=== PATIENT | female | born 1950 | race Caucasian/White ===

== ENCOUNTER 2016-11-08 11:15 | Day surgery (SDC) | payer BC ==
[~2016-11-08] VITALS: Ht 172.7 cm; Wt 82.1 kg
[~2016-11-08 11:15] MED LIST: CITA20TA17 PO; LIDOCAINE 1% (10mg/ml) 2ml SDV INJ ONE; LR 1,000 ML IV SCH; MAGN400C PO
--- OUTSIDE RECORDS SUMMARY | 2016-11-08 11:19 | XMS REPORT | Referral Summary ---
Author Author [facility], Family Medicine Organization [facility] Address Unknown Phone Unavailable Care Team Providers Care Lead Database Administrator Name Role Phone Doris Albert Primary Care Physician [phone] Encounter [facility] [id number] Date(s): 10/03/15 - 10/03/15 [facility], [address] [place] [address]- Discharge Diagnosis: Fatigue Discharge Diagnosis: Left otitis externa Discharge Diagnosis: Lipid screening Discharge Diagnosis: Knee pain, right Discharge Diagnosis: Well woman exam (no gynecological exam) Discharge Disposition: 01-Home or Self Care Attending Physician: Ciara Moreno PA-C Admitting Physician: Ciara Moreno PA-C Vital Signs Most recent to 1 oldest [Reference Range]: Peripheral Pulse 76 bpm Rate [60-100 bpm] (10/03/15 8:41 AM) Respiratory Rate 18 br/min [14-20 br/min] (10/03/15 8:41 AM) Blood Pressure 106/68 mmHg [90-140/60-90 mmHg] (10/03/15 8:41 AM) Problem List Condition Effective Dates Status Health Status Informant Abdominal Active pain(Confirmed) Asthma(Confirmed)1 Active Chronic fatigue Active disorder(Confirmed) Anxious Active depression(Confirmed ) PUD (peptic ulcer Active disease)(Confirmed) 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, usually no problems Allergies, Adverse Reactions, Alerts Substance Reaction Severity Status penicillin Rash Active sulfanilamide topical Rash Active Medications Aspir 81 81 mg, Oral, Daily, 0 Refill(s) Start Date: 06/03/14 Status: Ordered CeleXA 20 mg oral tablet See Instructions, TAKE ONE TABLET BY MOUTH DAILY, # 60 tabs, 6 Refill(s), Pharmacy: [facility] #[id number], TAKE ONE TABLET BY MOUTH DAILY Start Date: 01/16/15 Status: Ordered Ciprodex 0.3%-0.1% otic suspension 4 drops, Ear-Left, BID, X 7 days, # 7.5 mL, 0 Refill(s), Pharmacy: [id number] Start Date: 09/29/15 Stop Date: 10/06/15 Status: Ordered clindamycin 300 mg oral capsule See Instructions, TAKE 2 CAPSULES BY MOUTH 1 HOUR PRIOR TO DENTAL WORK., # 2 caps, 1 Refill(s), eRx: [facility] #[id number], TAKE 2 CAPSULES BY MOUTH 1 HOUR PRIOR TO DENTAL WORK. Start Date: 05/25/15 Status: Ordered PriLOSEC 20 mg oral delayed release capsule 20 mg 1 caps, Oral, Daily, # 90 caps, 3 Refill(s), Pharmacy: [facility] # [id number], 1 caps Oral Daily Start Date: 01/16/15 Status: Ordered Results Hematology Most recent to 1 oldest [Reference Range]: WBC [4.8-10.8 4.3 10*3/uL 10*3/uL] *LOW* (10/03/15 9:10 AM) RBC [4.00-5.20] 4.62 (10/03/15 9:10 AM) Hgb [12.0-16.0 13.2 gm/dL gm/dL] (10/03/15 9:10 AM) Hct [37.0-47.0 %] 38.4 % (10/03/15 9:10 AM) MCV [82.0-99.0 fL] 83.1 fL (10/03/15 9:10 AM) MCH [27.0-32.0 pg] 28.6 pg (10/03/15 9:10 AM) MCHC [32.0-36.0 34.4 gm/dL gm/dL] (10/03/15 9:10 AM) RDW [11.5-14.5 %] 13.9 % (10/03/15 9:10 AM) Platelet [150-400 282 10*3/uL 10*3/uL] (10/03/15 9:10 AM) MPV [8.8-14.8 fL] 9.6 fL (10/03/15 9:10 AM) Immature 0.0 % Granulocytes (10/03/15 9:10 AM) [0.0-1.0 %] Neutrophils [51-75 48 % %] *LOW* (10/03/15 9:10 AM) Lymphocytes [20-46 37 % %] (10/03/15 9:10 AM) Monocytes [4-11 %] 11 % (10/03/15 9:10 AM) Eosinophils [0-4 %] 4 % (10/03/15 9:10 AM) Basophils [0-2 %] 1 % (10/03/15 9:10 AM) Neutro Absolute 2.04 10*3 [1.90-7.00 10*3] (10/03/15 9:10 AM) Lymph Absolute 1.58 10*3 [0.80-3.30 10*3] (10/03/15 9:10 AM) [place] Absolute 0.46 10*3 [0.30-1.00 10*3] (10/03/15 9:10 AM) Eos Absolute 0.16 10*3 [0.00-0.50 10*3] (10/03/15 9:10 AM) Baso Absolute 0.02 10*3 [0.00-0.20 10*3] (10/03/15 9:10 AM) Chemistry Most recent to 1 oldest [Reference Range]: Sodium Lvl [135-144 140 mEq/L mEq/L] (10/03/15 9:10 AM) Potassium Lvl 4.3 mEq/L [3.5-5.2 mEq/L] (10/03/15 9:10 AM) Chloride [99-111 107 mEq/L mEq/L] (10/03/15 9:10 AM) CO2 [22-31 mEq/L] 28 mEq/L (10/03/15 9:10 AM) AGAP [3-20] 5 (10/03/15 9:10 AM) BUN [10-20 mg/dL] 13 mg/dL (10/03/15 9:10 AM) Glucose Lvl [70-99 81 mg/dL mg/dL] (10/03/15 9:10 AM) Creatinine Lvl 0.75 mg/dL [0.57-1.11 mg/dL] (10/03/15 9:10 AM) eGFR [>60 mL/min] >60 mL/min 1 (10/03/15 9:10 AM) Calcium Lvl 9.1 mg/dL [8.9-10.5 mg/dL] (10/03/15 9:10 AM) Albumin Lvl [3.4-4.8 4.1 gm/dL gm/dL] (10/03/15 9:10 AM) Total Protein 6.3 gm/dL [6.2-8.1 gm/dL] (10/03/15 9:10 AM) Globulin [1.8-4.0 2.2 gm/dL gm/dL] (10/03/15 9:10 AM) ALT [0-55 U/L] 17 U/L (10/03/15 9:10 AM) AST [5-34 U/L] 14 U/L (10/03/15 9:10 AM) Alk Phos [40-150 52 U/L U/L] (10/03/15 9:10 AM) Bili Total [0.2-1.2 0.5 mg/dL mg/dL] (10/03/15 9:10 AM) Chol [0-199 mg/dL] 188 mg/dL (10/03/15 9:10 AM) Trig [0-149 mg/dL] 100 mg/dL (10/03/15 9:10 AM) HDL [40-84 mg/dL] 51 mg/dL (10/03/15 9:10 AM) LDL [0-130 mg/dL] 117 mg/dL (10/03/15 9:10 AM) VLDL Cholesterol 20 mg/dL [0-28 mg/dL] (10/03/15 9:10 AM) Cardiac Risk 3.7 [0.0-5.0] (10/03/15 9:10 AM) TSH with Reflex Free 2.21 T4 [0.35-4.94] (10/03/15 9:10 AM) 1Result Comment: Multiply eGFR results by 1.21 for race. Immunizations Vaccine Date Refusal Reason tetanus/diphth/pertuss (Tdap) adult/adol 08/14/10 influenza virus vaccine, inactivated 06/02/15 influenza virus vaccine, inactivated 06/21/14 influenza virus vaccine, inactivated 07/30/13 influenza virus vaccine, live 07/02/12 pneumococcal 13-valent conjugate vaccine 02/27/15 pneumococcal 23-polyvalent vaccine 02/09/09 zoster vaccine live 02/27/15 Procedures Procedure Date Related Diagnosis Body Site Collection of venous blood by venipuncture 10/03/15 Excision of nail partial phenol & alcohol 02/03/12 lateral borde Removal of lesion Lt foot Destruct benign 12/27/11 Cataract extraction RT 2004 MANOHAR BSO - Total abdominal hysterectomy and 1996 bilateral salpingo-oophorectomy Social History Social History Type Response Smoking Status Never smoker Assessment and Plan Extracted from: Title: Ambulatory Patient Education Author: Ciara Moreno PA-C Date : 10/03/15 Family Medicine Fatigue Fatigue is feeling tired all of the time, a lack of energy, or a lack of motivation. Occasional or mild fatigue is often a normal response to activity or life in general. However, long-lasting (chronic) or extreme fatigue may indicate an underlying medical condition. HOME CARE INSTRUCTIONS Watch your fatigue for any changes. The following actions may help to lessen any discomfort you are feeling: Talk to your health care provider about how much sleep you need each night. Try to get the required amount every night. Take medicines only as directed by your health care provider. Eat a healthy and nutritious diet. Ask your health care provider if you need help changing your diet. Drink enough fluid to keep your urine clear or pale yellow. Practice ways of relaxing, such as yoga, meditation, massage therapy, or acupuncture. Exercise regularly. Change situations that cause you stress. Try to keep your work and personal routine reasonable. Do not abuse illegal drugs. Limit alcohol intake to no more than 1 drink per day for non women and 2 drinks per day for men. One drink equals 12 ounces of beer, 5 ounces of wine, or 1 ounces of hard liquor. Take a multivitamin, if directed by your health care provider. SEEK MEDICAL CARE IF: Your fatigue does not get better. You have a fever. You have unintentional weight loss or gain. You have headaches. You have difficulty: Falling asleep. Sleeping throughout the night. You feel angry, guilty, anxious, or sad. You are unable to have a bowel movement (constipation). You skin is dry. Your legs or another part of your body is swollen. SEEK IMMEDIATE MEDICAL CARE IF: You feel confused. Your vision is blurry. You feel faint or pass out. You have a severe headache. You have severe abdominal, pelvic, or back pain. You have chest pain, shortness of breath, or an irregular or fast heartbeat. You are unable to urinate or you urinate less than normal. You develop abnormal bleeding, such as bleeding from the rectum, vagina, nose, lungs, or nipples. You vomit blood. You have thoughts about harming yourself or committing suicide. You are worried that you might harm someone else. This information is not intended to replace advice given to you by your health care provider. Make sure you discuss any questions you have with your health care provider. Document Released: 05/17/2008 Document Revised: 05/09/2015 Document Reviewed: [facility] Patient Information 2015 [employer]. Knee Pain Knee pain is a very common symptom and can have many causes. Knee pain often goes away when you follow your health care provider's instructions for relieving pain and discomfort at home. However, knee pain can develop into a condition that needs treatment. Some conditions may include: Arthritis caused by wear and tear (osteoarthritis). Arthritis caused by swelling and irritation (rheumatoid arthritis or gout ). A cyst or growth in your knee. An infection in your knee joint. An injury that will not heal. Damage, swelling, or irritation of the tissues that support your knee ( torn ligaments or tendinitis). If your knee pain continues, additional tests may be ordered to diagnose your condition. Tests may include X-rays or other imaging studies of your knee. You may also need to have fluid removed from your knee. Treatment for ongoing knee pain depends on the cause, but treatment may include: Medicines to relieve pain or swelling. Steroid injections in your knee. Physical therapy. Surgery. HOME CARE INSTRUCTIONS Take medicines only as directed by your health care provider. Rest your knee and keep it raised (elevated) while you are resting. Do not do things that cause or worsen pain. Avoid high-impact activities or exercises, such as running, jumping rope , or doing jumping jacks. Apply ice to the knee area: Put ice in a plastic bag. Place a towel between your skin and the bag. Leave the ice on for 20 minutes, 23 times a day. Ask your health care provider if you should wear an elastic knee support. Keep a pillow under your knee when you sleep. Lose weight if you are overweight. Extra weight can put pressure on your knee. Do not use any tobacco products, including cigarettes, chewing tobacco, or electronic cigarettes. If you need help quitting, ask your health care provider. Smoking may slow the healing of any bone and joint problems that you may have. SEEK MEDICAL CARE IF: Your knee pain continues, changes, or gets worse. You have a fever along with knee pain. Your knee javier or locks up. Your knee becomes more swollen. SEEK IMMEDIATE MEDICAL CARE IF: Your knee joint feels hot to the touch. You have chest pain or trouble breathing. This information is not intended to replace advice given to you by your health care provider. Make sure you discuss any questions you have with your health care provider. Document Released: 05/17/2008 Document Revised: 05/09/2015 Document Reviewed: [facility] Patient Information 2015 [employer]. No follow up information was provided. Extracted from: Title: Office Visit Note- WWE Author: Ciara Moreno PA-C Date: Assessment/Plan Fatigue Will check some lab work today. Ordered: CBC w/ Differential Comprehensive Metabolic Panel Office Visit Level 4 Est 52068 TSH with Reflex Free T4 Knee pain, right I advised an x-ray today given the trauma to the R knee. Pt is advised to continue with ice, rest, and Tylenol for pain. Alsorecommended wrapping the knee with sleeve or GILA bandage. Ordered: Office Visit Level 4 Est 87574 XR Knee Complete Right Left otitis externa This appears to be resolving. Continue with drops for full course. Ordered: Office Visit Level 4 Est 41825 Lipid screening Will check fasting lipids today. Ordered: Lipid Panel Well woman exam (no gynecological exam) Pt does not need pap as she hashad hysterectomy. Still requires WWE yearly for manual breast exam. She is to call and schedule mammo. Sheis also encouraged to get colonoscopy. Ordered: CBC w/ Differential Comprehensive Metabolic Panel Lipid Panel Office Visit Level 4 Est 36201 TSH with Reflex Free T4
--- OUTSIDE RECORDS SUMMARY | 2016-11-08 11:19 | XMS REPORT | Referral Summary ---
Author Author [facility], Family [facility] Organization [facility] Address Unknown Phone Unavailable Care Team Providers Care Numerical Control Operator Name Role Phone Doris Albert Primary Care Physician [phone] Encounter [facility] [id number] Date(s): 02/27/15 - 02/27/15 [facility], [address] [place] [address]- Discharge Diagnosis: Need for zoster vaccine Discharge Diagnosis: Need for pneumococcal vaccination Discharge Disposition: 01-Home or Self Care Attending Physician: Sixto Albert MD Admitting Physician: Sixto Albert MD Vital Signs No data available for this section Problem List Condition Effective Dates Status Health [...] DAILY, # 60 tabs, 6 Refill(s), Pharmacy: [facility] #[id number], TAKE ONE TABLET BY MOUTH DAILY Start Date: 01/16/15 Status: Ordered clindamycin 300 mg oral capsule See Instructions, TAKE 2 CAPSULES BY MOUTH 1 HOUR PRIOR TO DENTAL WORK., # 2 caps, 1 Refill(s), [id number], TAKE 2 CAPSULES BY MOUTH 1 HOUR PRIOR TO DENTAL WORK. Start Date: 05/25/15 Status: Ordered PriLOSEC 20 mg oral delayed release capsule 20 mg 1 caps, Oral, Daily, # 90 caps, 3 Refill(s), Pharmacy: [facility] # [id number], 1 caps Oral Daily Start Date: 01/16/15 Status: Ordered Results No data available for this section Immunizations Vaccine Date Refusal Reason tetanus/diphth/pertuss (Tdap) adult/adol 08/14/10 influenza virus vaccine, inactivated 06/02/15 influenza virus vaccine, inactivated 06/21/14 influenza virus vaccine, inactivated 07/30/13 influenza virus vaccine, live 07/02/12 pneumococcal 13-valent conjugate vaccine 02/27/15 pneumococcal 23-polyvalent vaccine 02/09/09 zoster vaccine live 02/27/15 Procedures Procedure Date Related Diagnosis Body Site Excision of nail partial phenol & alcohol 02/03/12 lateral borde Removal of lesion Lt foot Destruct benign 12/27/11 Cataract extraction RT 2004 MANOHAR BSO - Total abdominal hysterectomy and 1996 bilateral salpingo-oophorectomy Social History Social History Type Response Smoking Status Never smoker Assessment and Plan No data available for this section
--- OUTSIDE RECORDS SUMMARY | 2016-11-08 11:19 | XMS REPORT | Referral Summary ---
Author Author [facility] Family [facility] Organization [facility] Address Unknown Phone Unavailable Care Team Providers Care Litigation Paralegal Name Role Phone Doris Albert Primary Care Physician [phone] Encounter [facility] Date(s): 07/10/16 - 07/10/16 [facility], [address] [place] [address]- Discharge Disposition: 01-Home or Self Care Attending Physician: Sixto Albert MD Vital Signs Most recent to 1 oldest [Reference Range]: Blood Pressure 116/64 mmHg [90-140/60-90 mmHg] (07/10/16 1:29 PM) Problem List Condition Effective Dates Status Health Status Informant Abdominal Active pain(Confirmed) Asthma(Confirmed)1 Active Chronic fatigue Active disorder(Confirmed) Closed fracture of Active body of sternum(Confirmed) Disorder of skeletal Active muscle(Confirmed) Anxious Active depression(Confirmed ) Cervical pain Active (neck)(Confirmed) PUD (peptic ulcer Active disease)(Confirmed) 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, usually no problems Allergies, Adverse Reactions, Alerts Substance Reaction Severity Status penicillin Rash Active sulfanilamide topical Rash Active Medications Aspir 81 81 mg, Oral, Daily, 0 Refill(s) Start Date: 06/03/14 Status: Ordered CeleXA 20 mg oral tablet See Instructions, TAKE ONE TABLET BY MOUTH DAILY, # 60 tabs, 6 Refill(s), Pharmacy: [id number], TAKE ONE TABLET BY MOUTH DAILY Start Date: 02/15/16 Status: Ordered clindamycin 300 mg oral capsule See Instructions, TAKE 2 CAPSULES BY MOUTH 1 HOUR PRIOR TO DENTAL WORK., # 2 caps, 1 Refill(s), eRx: [facility] #[id number], TAKE 2 CAPSULES BY MOUTH 1 HOUR PRIOR TO DENTAL WORK. Start Date: 05/25/15 Status: Ordered Mobic 7.5 mg oral tablet 7.5 mg 1 tabs, Oral, BID, # 60 tabs, 2 Refill(s), Pharmacy: [id number], 1 tabs Oral BID Start Date: 05/29/16 Status: Ordered Probiotic Formula caps, Oral, Daily, 0 Refill(s) Start Date: 02/15/16 Status: Ordered Robaxin-750 oral tablet 750 mg 1 tabs, Oral, TID, # 90 tabs, 1 Refill(s), Pharmacy: [id number], 1 tabs Oral TID Start Date: 05/29/16 Status: Ordered Voltaren 1% topical gel 1 chang, Topical, QID, # 100 g, 0 Refill(s), Pharmacy: [id number] Start Date: 07/10/16 Status: Ordered Results No data available for this section Immunizations Vaccine Date Refusal Reason tetanus/diphth/pertuss (Tdap) adult/adol 08/14/10 influenza virus vaccine, inactivated1 06/21/16 influenza virus vaccine, inactivated 06/02/15 influenza virus vaccine, inactivated 06/21/14 influenza virus vaccine, inactivated 07/30/13 influenza virus vaccine, live 07/02/12 pneumococcal 13-valent conjugate vaccine 02/27/15 pneumococcal 23-polyvalent vaccine 04/17/16 pneumococcal 23-polyvalent vaccine 02/09/09 zoster vaccine live 02/27/15 1Location History: [facility]. Procedures Procedure Date Related Diagnosis Body Site Excision of nail partial phenol & alcohol 02/03/12 lateral borde Removal of lesion Lt foot Destruct benign 12/27/11 Cataract extraction RT 2004 MANOHAR BSO - Total abdominal hysterectomy and 1996 bilateral salpingo-oophorectomy Social History Social History Type Response Smoking Status Never smoker Assessment and Plan Extracted from: Title: Ambulatory Patient Education Author: Sixto Albert MD Date: 07/10/16 Family Medicine Joint Pain Joint pain, which is also called arthralgia, can be caused by many things. Joint pain often goes away when you follow your health care provider's instructions for relieving pain at home. However, joint pain can also be caused by conditions that require further treatment. Common causes of joint pain include: Bruising in the area of the joint. Overuse of the joint. Wear and tear on the joints that occur with aging (osteoarthritis). Various other forms of arthritis. A buildup of a crystal form of uric acid in the joint (gout). Infections of the joint (septic arthritis) or of the bone (osteomyelitis) . Your health care provider may recommend medicine to help with the pain. If your joint pain continues, additional tests may be needed to diagnose your condition. HOME CARE INSTRUCTIONS Watch your condition for any changes. Follow these instructions as directed to lessen the pain that you are feeling. Take medicines only as directed by your health care provider. Rest the affected area for as long as your health care provider says that you should. If directed to do so, raise the painful joint above the level of your heart while you are sitting or lying down. Do not do things that cause or worsen pain. If directed, apply ice to the painful area: Put ice in a plastic bag. Place a towel between your skin and the bag. Leave the ice on for 20 minutes, 23 times per day. Wear an elastic bandage, splint, or sling as directed by your health care provider. Loosen the elastic bandage or splint if your fingers or toes become numb and tingle, or if they turn cold and blue. Begin exercising or stretching the affected area as directed by your health care provider. Ask your health care provider what types of exercise are safe for you. Keep all follow-up visits as directed by your health care provider. This is important. SEEK MEDICAL CARE IF: Your pain increases, and medicine does not help. Your joint pain does not improve within 3 days. You have increased bruising or swelling. You have a fever. You lose 10 lb (4.5 kg) or more without trying. SEEK IMMEDIATE MEDICAL CARE IF: You are not able to move the joint. Your fingers or toes become numb or they turn cold and blue. This information is not intended to replace advice given to you by your health care provider. Make sure you discuss any questions you have with your health care provider. Document Released: 07/21/2006 Document Revised: 08/11/2015 Document Reviewed: [employer] Patient Education 2016 [employer] No follow up information was provided. Extracted from: Title: Office Visit Note Author: Sixto Albert MD Date: 07/10/16 Assessment/Plan Acute knee pain Will get an x-ray and refer patient to see Dr. Chris. Koko dee. Ordered: Office Visit Level 3 Est 81643
--- OUTSIDE RECORDS SUMMARY | 2016-11-08 11:19 | XMS REPORT | Referral Summary ---
Author Author [facility], Family Medicine Organization [facility] Address Unknown Phone Unavailable Care Team Providers Care Deoiling Machine Operator Name Role Phone Doris Albert Primary Care Physician [phone] Encounter VC Date(s): 03/27/16 - 03/27/16 [facility], [address] [place] [address]- Discharge Disposition: 01-Home or Self Care Attending Physician: Sixto Albert MD Admitting Physician: Sixto Albert MD Vital Signs Most recent to 1 oldest [Reference Range]: Blood Pressure 96/58 mmHg [90-140/60-90 mmHg] (03/27/16 9:30 AM) Problem List Condition Effective Dates Status Health Status Informant Abdominal Active pain(Confirmed) Asthma(Confirmed)1 Active Chronic fatigue Active disorder(Confirmed) Closed fracture of Active body of sternum(Confirmed) Anxious Active depression(Confirmed ) PUD (peptic ulcer Active disease)(Confirmed) Chronic Active insomnia(Confirmed) 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, usually no problems Allergies, Adverse Reactions, Alerts Substance Reaction Severity Status penicillin Rash Active sulfanilamide topical Rash Active Medications Aspir 81 81 mg, Oral, Daily, 0 Refill(s) Start Date: 06/03/14 Status: Ordered CeleXA 20 mg oral tablet See Instructions, TAKE ONE TABLET BY MOUTH DAILY, # 60 tabs, 6 Refill(s), Pharmacy: [id number], TAKE ONE TABLET BY MOUTH DAILY Start Date: 02/15/16 Status: Ordered clindamycin 300 mg oral capsule See Instructions, TAKE 2 CAPSULES BY MOUTH 1 HOUR PRIOR TO DENTAL WORK., # 2 caps, 1 Refill(s), eRx: [facility] #[id number], TAKE 2 CAPSULES BY MOUTH 1 HOUR PRIOR TO DENTAL WORK. 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 A piece of the herniated disk may press against the nerves as the nerves exit the spine. This causes pain which is felt at the tips of the nerves down the arm or leg. Other causes of radicular pain may include: Fractures. Heart disease. Cancer. An abnormal and usually degenerative state of the nervous system or nerves (neuropathy). Diagnosis may require CT or MRI scanning to determine the primary cause. Nerves that start at the neck (nerve roots) may cause radicular pain in the outer shoulder and arm. It can spread down to the thumb and fingers. The symptoms vary depending on which nerve root has been affected. In most cases radicular pain improves with conservative treatment. Neck problems may require physical therapy, a neck collar, or cervical traction. Treatment may take many weeks, and surgery may be considered if the symptoms do not improve. Conservative treatment is also recommended for sciatica. Sciatica causes pain to radiate from the lower back or buttock area down the leg into the foot. Often there is a history of back problems. Most patients with sciatica are better after 2 to 4 weeks of rest and other supportive care. Short term bed rest can reduce the disk pressure considerably. Sitting, however, is not a good position since this increases the pressure on the disk. You should avoid bending , lifting, and all other activities which make the problem worse. Traction can be used in severe cases. Surgery is usually reserved for patients who do not improve within the first months of treatment. Only take bcrm-eag-gwbntga or prescription medicines for pain, discomfort, or fever as directed by your caregiver. Narcotics and muscle relaxants may help by relieving more severe pain and spasm and by providing mild sedation. Cold or massage can give significant relief. Spinal manipulation is not recommended. It can increase the degree of disc protrusion. Epidural steroid injections are often effective treatment for radicular pain. These injections deliver medicine to the spinal nerve in the space between the protective covering of the spinal cord and back bones (vertebrae). Your caregiver can give you more information about steroid injections. These injections are most effective when given within two weeks of the onset of pain. You should see your caregiver for follow up care as recommended. A program for neck and back injury rehabilitation with stretching and strengthening exercises is an important part of management. SEEK IMMEDIATE MEDICAL CARE IF: You develop increased pain, weakness, or numbness in your arm or leg. You develop difficulty with bladder or bowel control. You develop abdominal pain. This information is not intended to replace advice given to you by your health care provider. Make sure you discuss any questions you have with your health care provider. Document Released: 08/28/2005 Document Revised: 08/11/2015 Document Reviewed: [facility] Patient Information 2016 [facility], [facility]. Sternal Fracture The sternum is the bone in the center of the front of your chest which your ribs attach to. It is also called the breastbone. The most common cause of a sternal fracture (break in the bone) is an injury. The most common injury is from a motor vehicle accident. The fracture often comes from the seat belt or hitting the chest on the steering wheel or being forcibly bent forward ( shoulders toward your knees) during an accident. It is more common in females and the elderly. The fracture of the sternum is usually not a problem if there are no other injuries. Other injuries that may happen are to the ribs, heart, lungs, and abdominal organs. SYMPTOMS Common complaints from a fracture of the sternum include: Shortness of breath. Pain with breathing or difficulty breathing. Bruises about the chest. Tenderness or a cracking sound at the breastbone. DIAGNOSIS Your caregiver may be able to tell if the sternum is broken by examining you. Other times studies such as X-ray, CAT scan, ultrasound, and nuclear medicine are used to detect a fracture. TREATMENT Sternal fractures usually are not serious and if displacement is minimal , no treatment is necessary. The main concern is with damage to the surrounding structures: ribs, heart, great vessels coming from the heart, and the backbone in the chest area. Multiple rib fractures may cause breathing difficulties. Injury to one of the large vessels in the chest may be a threat to life and require immediate surgery. If injury to the heart or lungs is suspected it may be necessary to stay in the hospital and be monitored. Other injuries will be treated as needed. If the pieces of the breastbone are out of normal position, they may need to be reduced (put back in position) and then wired in place or fixed with a plate and screws during an operation. HOME CARE INSTRUCTIONS Avoid strenuous activity. Be careful during activities and avoid bumping or reinjuring the injured sternum. Activities that cause pain pull on the fracture site(s) and are best avoided if possible. Eat a normal, well-balanced diet. Drink plenty of fluids to avoid constipation, a common side effect of pain medications. Take deep breaths and cough several times a day, splinting the injured area with a pillow. This will help prevent pneumonia. Do not wear a rib belt or binder for the chest unless instructed otherwise. These restrict breathing and can lead to pneumonia. Only take xmfn-egj-wfdarae or prescription medicines for pain, discomfort , or fever as directed by your caregiver. SEEK MEDICAL CARE IF: You develop a continual cough, associated with thick or bloody mucus or phlegm ( sputum). SEEK IMMEDIATE MEDICAL CARE IF: You have a fever. You have increasing difficulty breathing. You feel sick to your stomach (nausea), vomit, or have abdominal pain. You have worsening pain, not controlled with medications. You develop pain in the tops of your shoulders (in the shoulder strap area). You feel light-headed or faint. You develop chest pain or an abnormal heartbeat (palpitations). You develop pain radiating into the jaw, teeth or down the arms. This information is not intended to replace advice given to you by your health care provider. Make sure you discuss any questions you have with your health care provider. Document Released: 03/04/2005 Document Revised: 08/11/2015 Document Reviewed: [facility] Patient Information 2016 [employer] [facility]. No follow up information was provided. Extracted from: Title: Office Visit Note Author: Sixto Albert MD Date: 03/27/16 Assessment/Plan Cervical spine degeneration Continue with the PT and also to work on the TMJ and if no improvement would suggest getting a Neuro consult and a MRI of the neck. Ordered: Office Visit Level 4 Est 59885 Closed fracture of body of sternum Improving will continue to follow. 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
--- OUTSIDE RECORDS SUMMARY | 2016-11-08 11:19 | XMS REPORT | Referral Summary ---
Author Author [facility], Family Medicine Organization [facility] Address Unknown Phone Unavailable Care Team Providers Care Director Emergency Services Name Role Phone Doris Albert Primary Care Physician [phone] Encounter VC Date(s): 04/17/16 - 04/17/16 [facility], [address] [place] [address]- Discharge Disposition: 01-Home or Self Care Attending Physician: Sixto Albert MD Admitting Physician: Sixto Albert MD Vital Signs Most recent to 1 oldest [Reference Range]: Blood Pressure 100/64 mmHg [90-140/60-90 mmHg] (04/17/16 9:15 AM) Problem List Condition Effective Dates Status [...] DAILY, # 60 tabs, 6 Refill(s), Pharmacy: [id number], TAKE ONE TABLET BY MOUTH DAILY Start Date: 02/15/16 Status: Ordered clindamycin 300 mg oral capsule See Instructions, TAKE 2 CAPSULES BY MOUTH 1 HOUR PRIOR TO DENTAL WORK., # 2 caps, 1 Refill(s), eRx: [facility] #[id number], TAKE 2 CAPSULES BY MOUTH 1 HOUR PRIOR TO DENTAL WORK. Start Date: 05/25/15 Status: Ordered Probiotic Formula caps, Oral, Daily, 0 Refill(s) Start Date: 02/15/16 Status: Ordered Results No data available for [...]
--- OUTSIDE RECORDS SUMMARY | 2016-11-08 11:19 | XMS REPORT | Referral Summary ---
Author Author [facility], Family Medicine Organization [facility] Address Unknown Phone Unavailable Care Team Providers Care Insulation Installer Name Role Phone Doris Albert Primary Care Physician [phone] Encounter [facility] [id number] Date(s): 09/29/15 - 09/29/15 [facility], [address] [place] [address]- Discharge Diagnosis: Left otitis externa Discharge Disposition: 01-Home or Self Care Attending Physician: Ciara Moreno PA-C Admitting Physician: Ciara Moreno PA-C Vital Signs Most recent to 1 oldest [Reference Range]: Peripheral Pulse 80 bpm Rate [60-100 bpm] (09/29/15 3:15 PM) Respiratory Rate 16 br/min [14-20 br/min] (09/29/15 3:15 PM) Blood Pressure 98/62 mmHg [90-140/60-90 mmHg] (09/29/15 3:15 PM) Problem List Condition Effective Dates Status [...] DAILY, # 60 tabs, 6 Refill(s), Pharmacy: [facility] #[id number], TAKE ONE TABLET BY MOUTH DAILY Start Date: 01/16/15 Status: Ordered Ciprodex 0.3%-0.1% otic suspension 4 drops, Ear-Left, BID, X 7 days, # 7.5 mL, 0 Refill(s), Pharmacy: [id number] Start Date: 09/29/15 Stop Date: 10/06/15 Status: Ordered clindamycin 300 mg oral capsule See Instructions, TAKE 2 CAPSULES BY MOUTH 1 HOUR PRIOR TO DENTAL WORK., # 2 caps, 1 Refill(s), [facility] #[id number], TAKE 2 CAPSULES BY MOUTH 1 HOUR PRIOR TO DENTAL WORK. Start Date: 05/25/15 Status: Ordered PriLOSEC 20 mg oral delayed release capsule 20 mg 1 caps, Oral, Daily, # 90 caps, 3 Refill(s), [facility] # [id number], 1 caps Oral Daily Start Date: 01/16/15 [...] Education Author: Ciara Moreno PA-C Date : 09/29/15 Family Medicine Ear Drops You have been diagnosed with a condition requiring you to put drops of medicine into your outer ear. HOME CARE INSTRUCTIONS Put drops in the affected ear as instructed. After putting the drops in, you will need to lie down with the affected ear facing up for ten minutes so the drops will remain in the ear canal and run down and fill the canal. Continue using the ear drops for as long as directed by your health care provider. Prior to getting up, put a cotton ball gently in your ear canal. Leave enough of the cotton ball out so it can be easily removed. Do not attempt to push this down into the canal with a cotton-tipped swab or other instrument. Do not irrigate or wash out your ears if you have had a perforated eardrum or mastoid surgery, or unless instructed to do so by your health care provider. Keep appointments with your health care provider as instructed. Finish all medicine, or use for the length of time prescribed by your health care provider. Continue the drops even if your problem seems to be doing well after a couple days, or continue as instructed. SEEK MEDICAL CARE IF: You become worse or develop increasing pain. You notice any unusual drainage from your ear (particularly if the drainage has a bad smell). You develop hearing difficulties. You experience a serious form of dizziness in which you feel as if the room is spinning, and you feel nauseated (vertigo). The outside of your ear becomes red or swollen or both. This may be a sign of an allergic reaction. MAKE SURE YOU: Understand these instructions. Will watch your condition. Will get help right away if you are not doing well or get worse. This information is not intended to replace advice given to you by your health care provider. Make sure you discuss any questions you have with your health care provider. Document Released: 07/15/2002 Document Revised: 07/26/2014 Document Reviewed: [facility] Patient Information 2015 [employer]. Otitis Externa Otitis externa is a bacterial or fungal infection of the outer ear canal. This is the area from the eardrum to the outside of the ear. Otitis externa is sometimes called "swimmer's ear." CAUSES Possible causes of infection include: Swimming in dirty water. Moisture remaining in the ear after swimming or bathing. Mild injury (trauma) to the ear. Objects stuck in the ear (foreign body). Cuts or scrapes (abrasions) on the outside of the ear. SIGNS AND SYMPTOMS The first symptom of infection is often itching in the ear canal. Later signs and symptoms may include swelling and redness of the ear canal, ear pain, and yellowish-white fluid (pus) coming from the ear. The ear pain may be worse when pulling on the earlobe. DIAGNOSIS Your health care provider will perform a physical exam. A sample of fluid may be taken from the ear and examined for bacteria or fungi. TREATMENT Antibiotic ear drops are often given for 10 to 14 days. Treatment may also include pain medicine or corticosteroids to reduce itching and swelling. HOME CARE INSTRUCTIONS Apply antibiotic ear drops to the ear canal as prescribed by your health care provider. Take medicines only as directed by your health care provider. If you have diabetes, follow any additional treatment instructions from your health care provider. Keep all follow-up visits as directed by your health care provider. PREVENTION Keep your ear dry. Use the corner of a towel to absorb water out of the ear canal after swimming or bathing. Avoid scratching or putting objects inside your ear. This can damage the ear canal or remove the protective wax that lines the canal. This makes it easier for bacteria and fungi to grow. Avoid swimming in lakes, polluted water, or poorly chlorinated pools. You may use ear drops made of rubbing alcohol and vinegar after swimming. Combine equal parts of white vinegar and alcohol in a bottle. Put 3 or 4 drops into each ear after swimming. SEEK MEDICAL CARE IF: You have a fever. Your ear is still red, swollen, painful, or draining pus after 3 days. Your redness, swelling, or pain gets worse. You have a severe headache. You have redness, swelling, pain, or tenderness in the area behind your ear. MAKE SURE YOU: Understand these instructions. Will watch your condition. Will get help right away if you are not doing well or get worse. This information is not intended to replace advice given to you by your health care provider. Make sure you discuss any questions you have with your health care provider. Document Released: 07/21/2006 Document Revised: 12/05/2014 Document Reviewed: [employer] Patient Information 2015 [facility]. No follow up information was provided. Extracted from: Title: Office Visit Note- L OE Author: Ciara Moreno PA-C Date: Assessment/Plan Left otitis externa At this time, the ear doesn't look too bad, but the pt would like treatment prior to the weekend. Will try some Ciprodex drops for a week, and she may take Tylenol for pain. She is to RTC on Friday if the pain is not improving. Ordered: Office Visit Level 3 Est 66875 Orders: ciprofloxacin-dexamethasone otic, 4 drops, Ear-Left, BID, X 7 days, # 7.5 mL, 0 Refill(s), [id number]
--- OUTSIDE RECORDS SUMMARY | 2016-11-08 11:19 | XMS REPORT | Referral Summary ---
Author Author [facility], [facility] Organization [facility] Address Unknown Phone Unavailable Care Team Providers Care Operator Electronic Warfare Name Role Phone Doris Albert Primary Care Physician [phone] Encounter VC Date(s): 05/29/16 - 05/29/16 [facility], [address] [place] [address]- Discharge Diagnosis: Closed fracture of body of sternum Discharge Diagnosis: Cervical pain (neck) Discharge Diagnosis: Disorder of skeletal muscle Discharge Disposition: 01-Home or Self Care Attending Physician: Sixto Albert MD Admitting Physician: Sixto Albert MD Vital Signs Most recent to 1 oldest [Reference Range]: Temperature Tympanic 37.6 degC [36.6-38.1 degC] (05/29/16 4:22 PM) Peripheral Pulse 81 bpm Rate [60-100 bpm] (05/29/16 4:22 PM) Blood Pressure 108/72 mmHg [90-140/60-90 mmHg] (05/29/16 4:22 PM) SpO2 97 % (05/29/16 4:22 PM) Problem List Condition Effective Dates Status [...] DAILY, # 60 tabs, 6 Refill(s), Pharmacy: [id number], TAKE ONE TABLET BY MOUTH DAILY Start Date: 02/15/16 Status: Ordered clindamycin 300 mg oral capsule See Instructions, TAKE 2 CAPSULES BY MOUTH 1 HOUR PRIOR TO DENTAL WORK., # 2 caps, 1 Refill(s), eRx: [facility] #[id number], TAKE 2 CAPSULES BY MOUTH 1 HOUR PRIOR TO DENTAL WORK. Start Date: 05/25/15 Status: Ordered Mobic 7.5 mg oral tablet 7.5 mg 1 tabs, Oral, BID, # 60 tabs, 2 Refill(s), [id number], 1 tabs Oral BID Start Date: 05/29/16 Status: Ordered Probiotic Formula caps, Oral, Daily, 0 Refill(s) Start Date: 02/15/16 Status: Ordered Robaxin-750 oral tablet 750 mg 1 tabs, Oral, TID, # 90 tabs, 1 Refill(s), Pharmacy: [id number], 1 tabs Oral TID Start Date: 05/29/16 Status: Ordered Results No data available for [...] Patient Education Author: Sixto Albert MD Date: Musculoskeletal Radicular Pain Radicular pain in either the [...] the first months of treatment. Only take isva-amh-uworazm or prescription medicines for pain, discomfort, or [...] Released: 08/28/2005 Document Revised: 08/11/2015 Document Reviewed: [employer] Patient Education 2016 [employer] Procedures Epidural Steroid Injection An epidural steroid injection is given to relieve pain in your neck, back, or legs that is caused by the irritation or swelling of a nerve root. This procedure involves injecting a steroid and numbing medicine (anesthetic) into the epidural space. The epidural space is the space between the outer covering of your spinal cord and the bones that form your backbone (vertebra). LET YOUR HEALTH CARE PROVIDER KNOW ABOUT: Any allergies you have. All medicines you are taking, including vitamins, herbs, eye drops, creams, and wsbh-jqy-hbcbnny medicines such as aspirin. Previous problems you or members of your family have had with the use of anesthetics. Any blood disorders or blood clotting disorders you have. Previous surgeries you have had. Medical conditions you have. RISKS AND COMPLICATIONS Generally, this is a safe procedure. However, as with any procedure, complications can occur. Possible complications of epidural steroid injection include: Headache. Bleeding. Infection. Allergic reaction to the medicines. Damage to your nerves. The response to this procedure depends on the underlying cause of the pain and its duration. People who have long-term (chronic) pain are less likely to benefit from epidural steroids than are those people whose pain comes on strong and suddenly. BEFORE THE PROCEDURE Ask your health care provider about changing or stopping your regular medicines. You may be advised to stop taking blood-thinning medicines a few days before the procedure. You may be given medicines to reduce anxiety. Arrange for someone to take you home after the procedure. PROCEDURE You will remain awake during the procedure. You may receive medicine to make you relaxed. You will be asked to lie on your stomach. The injection site will be cleaned. The injection site will be numbed with a medicine (local anesthetic). A needle will be injected through your skin into the epidural space. Your health care provider will use an X-ray machine to ensure that the steroid is delivered closest to the affected nerve. You may have minimal discomfort at this time. Once the needle is in the right position, the local anesthetic and the steroid will be injected into the epidural space. The needle will then be removed and a bandage will be applied to the injection site. AFTER THE PROCEDURE You may be monitored for a short time before you go home. You may feel weakness or numbness in your arm or leg, which disappears within hours. You may be allowed to eat, drink, and take your regular medicine. You may have soreness at the site of the injection. This information is not intended to replace advice given to you by your health care provider. Make sure you discuss any questions you have with your health care provider. Document Released: 10/27/2008 Document Revised: 03/23/2014 Document Reviewed: [employer] Patient Education 2016 [employer] No follow up information was provided. Extracted from: Title: Office Visit Note Author: Sixto Albert MD Date: 05/29/16 Assessment/Plan Cervical pain (neck) Refer to Neurologist. Ordered: Office Visit Level 3 Est 00744 Closed fracture of body of sternum Improved and having no more pain. Ordered: Office Visit Level 3 Est 39056 Disorder of skeletal muscle Continue with PT and start her on Mobic and Robaxin. Ordered: Office Visit Level 3 Est 98053
--- OUTSIDE RECORDS SUMMARY | 2016-11-08 11:19 | XMS REPORT | Referral Summary ---
Author Author [facility] Organization [facility] Address Unknown Phone Unavailable Care Team Providers Care Grader Tender Name Role Phone Doris Albert Primary Care Physician [phone] Encounter VC Date(s): 01/16/15 - 01/16/15 [facility], [address] [place] [address]- Discharge Diagnosis: DIARRHEA Discharge Disposition: 01-Home or Self Care Attending Physician: Sixto Albert MD Admitting Physician: Sixto Albert MD Vital Signs Most recent to 1 oldest [Reference Range]: Blood Pressure 102/68 mmHg [90-140/60-90 mmHg] (01/16/15 11:11 AM) Problem List Condition Effective Dates Status [...] DAILY, # 60 tabs, 6 Refill(s), Pharmacy: [facility] #[id number], TAKE ONE TABLET BY MOUTH DAILY Start Date: 01/16/15 Status: Ordered clindamycin 300 mg oral capsule See Instructions, TAKE 2 CAPSULES BY MOUTH 1 HOUR PRIOR TO DENTAL WORK., # 2 caps, 1 Refill(s), eRx: [facility] #[id number], TAKE 2 CAPSULES BY MOUTH 1 HOUR PRIOR TO DENTAL WORK. Start Date: 05/25/15 Status: Ordered PriLOSEC 20 mg oral delayed release capsule 20 mg 1 caps, Oral, Daily, # 90 caps, 3 Refill(s), Pharmacy: [facility] # [id number], 1 caps Oral Daily Start Date: 01/16/15 Status: Ordered Results Hematology Most recent to 1 oldest [Reference Range]: WBC [4.8-10.8 4.5 10*3/uL 10*3/uL] *LOW* (01/16/15 12:00 PM) RBC [4.00-5.20 4.61 10*6/uL 10*6/uL] (01/16/15 12:00 PM) Hgb [12.0-16.0 13.3 gm/dL gm/dL] (01/16/15 12:00 PM) Hct [37.0-47.0 %] 39.2 % (01/16/15 12:00 PM) MCV [82.0-99.0 fL] 85.0 fL (01/16/15 12:00 PM) MCH [27.0-32.0 pg] 28.9 pg (01/16/15 12:00 PM) MCHC [32.0-36.0 33.9 gm/dL gm/dL] (01/16/15 12:00 PM) RDW [11.5-14.5 %] 13.6 % (01/16/15 12:00 PM) Platelet [150-400 271 10*3/uL 10*3/uL] (01/16/15 12:00 PM) MPV [8.8-14.8 fL] 9.6 fL (01/16/15 12:00 PM) Immature 0.0 % Granulocytes (01/16/15 12:00 PM) [0.0-1.0 %] Neutrophils [51-75 45 % %] *LOW* (01/16/15 12:00 PM) Lymphocytes [20-46 45 % %] (01/16/15 12:00 PM) Monocytes [4-11 %] 7 % (01/16/15 12:00 PM) Eosinophils [0-4 %] 2 % (01/16/15 12:00 PM) Basophils [0-2 %] 1 % (01/16/15 12:00 PM) Neutro Absolute 2.01 10*3 [1.90-7.00 10*3] (01/16/15 12:00 PM) Lymph Absolute 2.00 10*3 [0.80-3.30 10*3] (01/16/15 12:00 PM) [place] Absolute 0.33 10*3 [0.30-1.00 10*3] (01/16/15 12:00 PM) Eos Absolute 0.09 10*3 [0.00-0.50 10*3] (01/16/15 12:00 PM) Baso Absolute 0.03 10*3 [0.00-0.20 10*3] (01/16/15 12:00 PM) Chemistry Most recent to 1 oldest [Reference Range]: Sodium Lvl [135-144 141 mEq/L mEq/L] (01/16/15 12:00 PM) Potassium Lvl 4.6 mEq/L [3.5-5.2 mEq/L] (01/16/15 12:00 PM) Chloride [99-111 107 mEq/L mEq/L] (01/16/15:00 PM) CO2 [22-31 mEq/L] 25 mEq/L (01/16/15 12:00 PM) AGAP [3-20] 9 (01/16/15 12:00 PM) BUN [10-20 mg/dL] 20 mg/dL (01/16/15 12:00 PM) Glucose Lvl [70-99 91 mg/dL mg/dL] (01/16/15 12:00 PM) Creatinine Lvl 0.78 mg/dL [0.57-1.11 mg/dL] (01/16/15 12:00 PM) eGFR [>60 mL/min] >60 mL/min 1 (01/16/15 12:00 PM) Calcium Lvl 9.6 mg/dL [8.9-10.5 mg/dL] (01/16/15 12:00 PM) Albumin Lvl [3.4-4.8 4.3 gm/dL gm/dL] (01/16/15 12:00 PM) Total Protein 6.5 gm/dL [6.2-8.1 gm/dL] (01/16/15 12:00 PM) Globulin [1.8-4.0 2.2 gm/dL gm/dL] (01/16/15 12:00 PM) ALT [0-55 U/L] 21 U/L (01/16/15 12:00 PM) AST [5-34 U/L] 18 U/L (01/16/15 12:00 PM) Alk Phos [40-150 37 U/L U/L] *LOW* (01/16/15 12:00 PM) Bili Total [0.2-1.2 0.3 mg/dL mg/dL] (01/16/15 12:00 PM) T4 [4.8-11.7 mcg/dL] 5.0 mcg/dL (01/16/15 12:00 PM) TSH [0.35-4.94] 2.37 (01/16/15 12:00 PM) 1Result Comment: Multiply eGFR results by 1.21 [...] Site Collection of venous blood by venipuncture 01/16/15 Excision of nail partial phenol & alcohol 02/03/12 lateral borde Removal of lesion Lt foot Destruct benign 12/27/11 Cataract extraction RT 2004 [facility] BSO - Total abdominal hysterectomy and 1996 bilateral salpingo-oophorectomy Social History Social History Type Response Smoking Status Never smoker Assessment and Plan Extracted from: Title: Ambulatory Patient Education Author: Sixto Albert MD Date: Family Medicine Chronic Fatigue Syndrome Chronic Fatigue Syndrome is characterized by extreme fatigue that does not improve with rest. The cause of this condition is unknown. SYMPTOMS An unexplained dramatic loss of energy. Muscle or joint soreness. Severe weakness. Frequent headaches. Fever, sore throat, and swollen lymph glands. Sleep problems. Inability to concentrate. Symptoms must usually be present for over 6 months before the diagnosis of chronic fatigue can be made. There is no diagnostic test for this disease. Many other diseases can cause similar symptoms. A complete medical evaluation is needed to be sure you do not have other medical problems causing your symptoms. There is no specific treatment for Chronic Fatigue Syndrome. Cognitive behavioral therapy (similar to counseling) and/or a simple exercise regimen may be beneficial. Get plenty of rest and avoid alcohol and other depressant drugs. Call your caregiver for follow up care as recommended. Document Released: 08/28/2005 Document Revised: 10/12/2012 Document Reviewed: [facility] Patient Information [facility] [employer] [facility]. Diarrhea Diarrhea is watery poop (stool ). It can make you feel weak, tired, thirsty, or give you a dry mouth (signs of dehydration ). Watery poop is a sign of another problem, most often an infection. It often lasts 23 days. It can last longer if it is a sign of something serious. Take care of yourself as told by your doctor. HOME CARE Drink 1 cup (8 ounces) of fluid each time you have watery poop. Do not drink the following fluids: Those that contain simple sugars (fructose, glucose, galactose, lactose, sucrose, maltose). Sports drinks. Fruit juices. Whole milk products. Sodas. Drinks with caffeine (coffee, tea, soda) or alcohol. Oral rehydration solution may be used if the doctor says it is okay. You may make your own solution. Follow this recipe: teaspoon table salt. teaspoon baking soda. teaspoon salt substitute containing potassium chloride. 1 tablespoons sugar. 1 liter (34 ounces) of water. Avoid the following foods: High fiber foods, such as raw fruits and vegetables. Nuts, seeds, and whole grain breads and cereals. Those that are sweetened with sugar alcohols (xylitol, sorbitol, mannitol) . Try eating the following foods: Starchy foods, such as rice, toast, pasta, low-sugar cereal, oatmeal, baked potatoes, crackers, and bagels. Bananas. Applesauce. Eat probiotic-rich foods, such as yogurt and milk products that are fermented. Wash your hands well after each time you have watery poop. Only take medicine as told by your doctor. Take a warm bath to help lessen burning or pain from having watery poop. GET HELP RIGHT AWAY IF: You cannot drink fluids without throwing up (vomiting ). You keep throwing up. You have blood in your poop, or your poop looks black and tarry. You do not pee (urinate ) in 68 hours, or there is only a small amount of very dark pee. You have belly (abdominal ) pain that gets worse or stays in the same spot (localizes ). You are weak, dizzy, confused, or lightheaded. You have a very bad headache. Your watery poop gets worse or does not get better. You have a fever or lasting symptoms for more than 23 days. You have a fever and your symptoms suddenly get worse. MAKE SURE YOU: Understand these instructions. Will watch your condition. Will get help right away if you are not doing well or get worse. Document Released: 01/06/2009 Document Revised: 04/14/2013 Document Reviewed: [employer] Patient Information 2014 [employer]. No follow up information was provided. Extracted from: Title: Office Visit Note Author: Sixto Albert MD Date: 01/16/15 Assessment/Plan Anxious depression Ordered: Office Visit Level 4 Est 12383 Chronic fatigue disorder Will further evaluate with lab. Ordered: Office Visit Level 4 Est 51846 DIARRHEA Will start her on Flagyl. Waiting for the stool cultures. Ordered: C. Difficile toxin B by PCR Office Visit Level 4 Est 35552 Orders: citalopram, See Instructions, TAKE ONE TABLET BY MOUTH DAILY, # 60 tabs, 6 Refill(s), Pharmacy: [facility] #[id number], TAKE ONE TABLET BY MOUTH DAILY metroNIDAZOLE, 500 mg 1 tabs, Oral, BID, X 10 days, # 20 tabs, 0 Refill(s), Pharmacy: [facility] #[id number], 1 tabs Oral BID,x10 days omeprazole, 20 mg 1 caps, Oral, Daily, # 90 caps, 3 Refill(s), Pharmacy: [facility] #[id number], 1 caps Oral Daily
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
--- OUTSIDE RECORDS SUMMARY | 2016-11-08 11:19 | XMS REPORT | Referral Summary ---
Author Author [facility] Organization [facility] [place] Address Unknown Phone Unavailable Care Team Providers Care Flight Attendant/Inflight Supervisor Name Role Phone Doris Albert Primary Care Physician [phone] Encounter VC Date(s): 02/27/16 - 02/27/16 [facility], [address] [place] [address]- Discharge Disposition: 01-Home or Self Care Attending Physician: Sixto Albert MD Admitting Physician: Sixto Albert MD Vital Signs Most recent to 1 oldest [Reference Range]: Blood Pressure 106/68 mmHg [90-140/60-90 mmHg] (02/27/16 1:34 PM) Problem List Condition Effective Dates Status [...] DAILY, # 60 tabs, 6 Refill(s), Pharmacy: [id number], TAKE ONE TABLET BY MOUTH DAILY Start Date: 02/15/16 Status: Ordered clindamycin 300 mg oral capsule See Instructions, TAKE 2 CAPSULES BY MOUTH 1 HOUR PRIOR TO DENTAL WORK., # 2 caps, 1 Refill(s), eRx: [facility] #[id number], TAKE 2 CAPSULES BY MOUTH 1 HOUR PRIOR TO DENTAL WORK. Start Date: 05/25/15 Status: Ordered Probiotic Formula caps, Oral, Daily, 0 Refill(s) Start Date: 02/15/16 Status: Ordered PT PT, See Instructions, Extend current PT orders for 1 more month. DX: M54.2 and R68.84, # 1 Each, 0 Refill(s) Start Date: 02/27/16 Status: Ordered Skelaxin 800 mg oral tablet 800 mg 1 tabs, Oral, TID, X 14 days, # 42 tabs, 0 Refill(s), Pharmacy: [id number], 1 tabs Oral TID,x14 days Start Date: 02/27/16 Stop Date: 03/12/16 Status: Ordered Results No data available for [...] Destruct benign 12/27/11 Cataract extraction RT 2004 [facility] BSO - Total abdominal hysterectomy and 1996 bilateral salpingo-oophorectomy Social History Social History Type Response Smoking Status Never smoker Assessment and Plan Extracted from: Title: Ambulatory Patient Education Author: Sixto Albert MD Date: Family Medicine Sternal Fracture The sternum is the bone [...] and can lead to pneumonia. Only take [id number] or prescription medicines for pain, discomfort , [...] Released: 03/04/2005 Document Revised: 08/11/2015 Document Reviewed: [employer] Patient Information 2016 [employer] [facility]. No follow up information was provided. Extracted from: Title: Office Visit Note Author: Sixto Albert MD Date: 02/27/16 Assessment/Plan Chronic insomnia Rx for Ativan 0.5mg at bedtime. Ordered: Office Visit Level 4 Est 52041 Closed fracture of body of sternum Continue with the present treatment. Start Skelaxin, Ordered: Office Visit Level 4 Est 64410 XR Sternum Minimum 2 Views Orders: metaxalone, 800 mg 1 tabs, Oral, TID, X 14 days, # 42 tabs, 0 Refill(s ), Pharmacy: [facility] [employer] [id number], 1 tabs Oral TID,x14 days
--- OUTSIDE RECORDS SUMMARY | 2016-11-08 11:19 | XMS REPORT | Referral Summary ---
Author Author [facility], Family [facility] Organization [facility] Address Unknown Phone Unavailable Care Team Providers Care Technical Service Specialist Name Role Phone Roosevelt Doris Primary Care Physician [phone] Encounter VC Date(s): 02/01/16 - 02/01/16 [facility], [address] [place] [address]- Discharge Disposition: 01-Home or Self Care Attending Physician: Tavon Wiggins MD Admitting Physician: Tavon Wiggins MD Vital Signs Most recent to 1 oldest [Reference Range]: Temperature Tympanic 36.4 degC [36.6-38.1 degC] *LOW* (02/01/16 11:04 AM) Peripheral Pulse 72 bpm Rate [60-100 bpm] (02/01/16 11:04 AM) Blood Pressure 116/72 mmHg [90-140/60-90 mmHg] (02/01/16 11:04 AM) SpO2 99 % (02/01/16 11:04 AM) Problem List Condition Effective Dates Status [...] DAILY, # 60 tabs, 6 Refill(s), Pharmacy: [facility] #[id number], TAKE ONE TABLET BY MOUTH DAILY Start Date: 01/16/15 Status: Ordered clindamycin 300 mg oral capsule See Instructions, TAKE 2 CAPSULES BY MOUTH 1 HOUR PRIOR TO DENTAL WORK., # 2 caps, 1 Refill(s), eRx: [facility] #[id number], TAKE 2 CAPSULES BY MOUTH 1 HOUR PRIOR TO DENTAL WORK. Start Date: 05/25/15 Status: Ordered cyclobenzaprine 10 mg oral tablet 10 mg 1 tabs, Oral, q8hr, as needed for spasm, X 10 days, # 30 tabs, 1 Refill(s) , Indication: as needed for neck pain, Pharmacy: [id number], 1 tabs Oral q8hr,x10 days,PRN:as needed for spasm Start Date: 02/01/16 Stop Date: 02/21/16 Status: Ordered meloxicam 15 mg oral tablet 15 mg 1 tabs, Oral, Daily, # 30 tabs, 3 Refill(s), Pharmacy: [id number], 1 tabs Oral Daily Start Date: 02/01/16 Status: Ordered PriLOSEC 20 mg oral delayed release capsule 20 mg 1 caps, Oral, Daily, # 90 caps, 3 Refill(s), Pharmacy: [facility] # [id number], 1 caps Oral Daily Start Date: 01/16/15 [...] Extracted from: Title: Ambulatory Patient Education Author: Tavon Wiggins MD Date: 01/31 Family Medicine Cervical Strain and Sprain With Rehab Cervical strain and sprain are injuries that commonly occur with "whiplash" injuries. Whiplash occurs when the neck is forcefully whipped backward or forward, such as during a motor vehicle accident or during contact sports. The muscles, ligaments, tendons, discs, and nerves of the neck are susceptible to injury when this occurs. RISK FACTORS Risk of having a whiplash injury increases if: Osteoarthritis of the spine. Situations that make head or neck accidents or trauma more likely. High-risk sports (football, rugby, wrestling, hockey, auto racing, gymnastics, diving, contact karate, or boxing). Poor strength and flexibility of the neck. Previous neck injury. Poor tackling technique. Improperly fitted or padded equipment. SYMPTOMS Pain or stiffness in the front or back of neck or both. Symptoms may present immediately or up to 24 hours after injury. Dizziness, headache, nausea, and vomiting. Muscle spasm with soreness and stiffness in the neck. Tenderness and swelling at the injury site. PREVENTION Learn and use proper technique (avoid tackling with the head, spearing, and head-butting; use proper falling techniques to avoid landing on the head). Warm up and stretch properly before activity. Maintain physical fitness: Strength, flexibility, and endurance. Cardiovascular fitness. Wear properly fitted and padded protective equipment, such as padded soft collars, for participation in contact sports. PROGNOSIS Recovery from cervical strain and sprain injuries is dependent on the extent of the injury. These injuries are usually curable in 1 week to 3 months with appropriate treatment. RELATED COMPLICATIONS Temporary numbness and weakness may occur if the nerve roots are damaged , and this may persist until the nerve has completely healed. Chronic pain due to frequent recurrence of symptoms. Prolonged healing, especially if activity is resumed too soon (before complete recovery). TREATMENT Treatment initially involves the use of ice and medication to help reduce pain and inflammation. It is also important to perform strengthening and stretching exercises and modify activities that worsen symptoms so the injury does not get worse. These exercises may be performed at home or with a therapist. For patients who experience severe symptoms, a soft, padded collar may be recommended to be worn around the neck. Improving your posture may help reduce symptoms. Posture improvement includes pulling your chin and abdomen in while sitting or standing. If you are sitting, sit in a firm chair with your buttocks against the back of the chair. While sleeping, try replacing your pillow with a small towel rolled to 2 inches in diameter, or use a cervical pillow or soft cervical collar. Poor sleeping positions delay healing. For patients with nerve root damage, which causes numbness or weakness, the use of a cervical traction apparatus may be recommended. Surgery is rarely necessary for these injuries. However, cervical strain and sprains that are present at (congenital) may require surgery. MEDICATION If pain medication is necessary, nonsteroidal anti-inflammatory medications, such as aspirin and ibuprofen, or other minor pain relievers, such as acetaminophen, are often recommended. Do not take pain medication for 7 days before surgery. Prescription pain relievers may be given if deemed necessary by your caregiver. Use only as directed and only as much as you need. HEAT AND COLD: Cold treatment (icing) relieves pain and reduces inflammation. Cold treatment should be applied for 10 to 15 minutes every 2 to 3 hours for inflammation and pain and immediately after any activity that aggravates your symptoms. Use ice packs or an ice massage. Heat treatment may be used prior to performing the stretching and strengthening activities prescribed by your caregiver, physical therapist, or color strainer. Use a heat pack or a warm soak. SEEK MEDICAL CARE IF: Symptoms get worse or do not improve in 2 weeks despite treatment. New, unexplained symptoms develop (drugs used in treatment may produce side effects). EXERCISES RANGE OF MOTION (ROM) AND STRETCHING EXERCISES - Cervical Strain and Sprain These exercises may help you when beginning to rehabilitate your injury. In order to successfully resolve your symptoms, you must improve your posture. These exercises are designed to help reduce the forward-head and rounded- shoulder posture which contributes to this condition. Your symptoms may resolve with or without further involvement from your physician, physical therapist or color strainer. While completing these exercises, remember: Restoring tissue flexibility helps normal motion to return to the joints. This allows healthier, less painful movement and activity. An effective stretch should be held for at least 20 seconds, although you may need to begin with shorter hold times for comfort. A stretch should never be painful. You should only feel a gentle lengthening or release in the stretched tissue. STRETCH- Axial Extensors Lie on your back on the floor. You may bend your knees for comfort. Place a rolled-up hand towel or dish towel, about 2 inches in diameter, under the part of your head that makes contact with the floor. Gently tuck your chin, as if trying to make a "double chin," until you feel a gentle stretch at the base of your head. Hold seconds. Repeat times. Complete this exercise times per day. STRETCH - Axial Extension Stand or sit on a firm surface. Assume a good posture: chest up, shoulders drawn back, abdominal muscles slightly tense, knees unlocked (if standing) and feet hip width apart. Slowly retract your chin so your head slides back and your chin slightly lowers. Continue to look straight ahead. You should feel a gentle stretch in the back of your head. Be certain not to feel an aggressive stretch since this can cause headaches later. Hold for seconds. Repeat times. Complete this exercise times per day. STRETCH Cervical Side Bend Stand or sit on a firm surface. Assume a good posture: chest up, shoulders drawn back, abdominal muscles slightly tense, knees unlocked (if standing) and feet hip width apart. Without letting your nose or shoulders move, slowly tip your right / left ear to your shoulder until your feel a gentle stretch in the muscles on the opposite side of your neck. Hold seconds. Repeat times. Complete this exercise times per day. STRETCH Cervical Rotators Stand or sit on a firm surface. Assume a good posture: chest up, shoulders drawn back, abdominal muscles slightly tense, knees unlocked (if standing) and feet hip width apart. Keeping your eyes level with the ground, slowly turn your head until you feel a gentle stretch along the back and opposite side of your neck. Hold seconds. Repeat times. Complete this exercise times per day. RANGE OF MOTION - Neck Circles Stand or sit on a firm surface. Assume a good posture: chest up, shoulders drawn back, abdominal muscles slightly tense, knees unlocked (if standing) and feet hip width apart. Gently roll your head down and around from the back of one shoulder to the back of the other. The motion should never be forced or painful. Repeat the motion 1020 times, or until you feel the neck muscles relax and loosen. Repeat times. Complete the exercise times per day. STRENGTHENING EXERCISES - Cervical Strain and Sprain These exercises may help you when beginning to rehabilitate your injury. They may resolve your symptoms with or without further involvement from your physician, physical therapist, or color strainer. While completing these exercises, remember: Muscles can gain both the endurance and the strength needed for everyday activities through controlled exercises. Complete these exercises as instructed by your physician, physical therapist, or color strainer. Progress the resistance and repetitions only as guided. You may experience muscle soreness or fatigue, but the pain or discomfort you are trying to eliminate should never worsen during these exercises. If this pain does worsen, stop and make certain you are following the directions exactly. If the pain is still present after adjustments, discontinue the exercise until you can discuss the trouble with your clinician. STRENGTH Cervical Flexors, Isometric Face a wall, standing about [address] small pillow, a ball about 68 inches in diameter, or a folded towel between your forehead and the wall. Slightly tuck your chin and gently push your forehead into the soft object. Push only with mild to moderate intensity, building up tension gradually. Keep your jaw and forehead relaxed. Hold 10 to 20 seconds. Keep your breathing relaxed. Release the tension slowly. Relax your neck muscles completely before you start the next repetition. Repeat times. Complete this exercise times per day. STRENGTH- Cervical Lateral Flexors, Isometric Stand about 6 inches away from a wall. Place a small pillow, a ball about 68 inches in diameter, or a folded towel between the side of your head and the wall. Slightly tuck your chin and gently tilt your head into the soft object. Push only with mild to moderate intensity, building up tension gradually. Keep your jaw and forehead relaxed. Hold 10 to 20 seconds. Keep your breathing relaxed. Release the tension slowly. Relax your neck muscles completely before you start the next repetition. Repeat times. Complete this exercise times per day. STRENGTH Cervical Extensors, Isometric Stand about 6 inches away from a wall. Place a small pillow, a ball about 68 inches in diameter, or a folded towel between the back of your head and the wall. Slightly tuck your chin and gently tilt your head back into the soft object. Push only with mild to moderate intensity, building up tension gradually. Keep your jaw and forehead relaxed. Hold 10 to 20 seconds. Keep your breathing relaxed. Release the tension slowly. Relax your neck muscles completely before you start the next repetition. Repeat times. Complete this exercise times per day. POSTURE AND BODY MECHANICS CONSIDERATIONS - Cervical Strain and Sprain Keeping correct posture when sitting, standing or completing your activities will reduce the stress put on different body tissues, allowing injured tissues a chance to heal and limiting painful experiences. The following are general guidelines for improved posture. Your physician or physical therapist will provide you with any instructions specific to your needs. While reading these guidelines, remember: The exercises prescribed by your provider will help you have the flexibility and strength to maintain correct postures. The correct posture provides the optimal environment for your joints to work. All of your joints have less wear and tear when properly supported by a spine with good posture. This means you will experience a healthier, less painful body. Correct posture must be practiced with all of your activities, especially prolonged sitting and standing. Correct posture is as important when doing repetitive low-stress activities (typing) as it is when doing a single heavy-load activity (lifting). PROLONGED STANDING WHILE SLIGHTLY LEANING FORWARD When completing a task that requires you to lean forward while standing in one place for a long time, place either foot up on a stationary 2- to 4-inch high object to help maintain the best posture. When both feet are on the ground, the low back tends to lose its slight inward curve. If this curve flattens (or becomes too large), then the back and your other joints will experience too much stress, fatigue more quickly, and can cause pain. RESTING POSITIONS Consider which positions are most painful for you when choosing a resting position. If you have pain with flexion-based activities (sitting, bending, stooping, squatting), choose a position that allows you to rest in a less flexed posture. You would want to avoid curling into a position on your side. If your pain worsens with extension-based activities (prolonged standing, working overhead), avoid resting in an extended position such as sleeping on your stomach. Most people will find more comfort when they rest with their spine in a more neutral position, neither too rounded nor too arched. Lying on a non-sagging bed on your side with a pillow between your knees, or on your back with a pillow under your knees will often provide some relief. Keep in mind , being in any one position for a prolonged period of time, no matter how correct your posture, can still lead to stiffness. WALKING Walk with an upright posture. Your ears, shoulders, and hips should all line up. OFFICE WORK When working at a desk, create an environment that supports good, upright posture. Without extra support, muscles fatigue and lead to excessive strain on joints and other tissues. CHAIR: A chair should be able to slide under your desk when your back makes contact with the back of the chair. This allows you to work closely. The chair's height should allow your eyes to be level with the upper part of your monitor and your hands to be slightly lower than your elbows. Body position: Your feet should make contact with the floor. If this is not possible, use a foot rest. Keep your ears over your shoulders. This will reduce stress on your neck and low back. This information is not intended to replace advice given to you by your health care provider. Make sure you discuss any questions you have with your health care provider. Document Released: 07/21/2006 Document Revised: 08/11/2015 Document Reviewed: [facility] Patient Information 2016 [facility]. No follow up information was provided. Extracted from: Title: sternum fracture, neck Author: Tavon Wiggins MD Date: 02/01/16 strain, cervical radiculopathy, head contusion Impression and Plan Diagnosis Left cervical radiculopathy ([id number]-YX M54.12, Working, Medical). Neck pain on left side ([id number]-[id number] M54.2, Working, Medical). Temporomandibular joint (TMJ) pain (JMH66-RX M26.62, Working, Medical). Contusion of jaw (SZX98-RQ S00.83XA, Working, Medical). Head contusion (LPX87-HJ S00.93XA, Working, Medical). Fracture of sternum (QRF24-HJ S22.20XA, Working, Medical). Plan: 1) Stop the Ibuprofen. 2) Switch to Meloxicam once a day. 3) May take Tylenol as needed for pain. 4) Take the Cyclobenzaprine every 8 hours as needed for muscle spasms of the neck. Not to drive within 6 hours of a dose. Watch for drowsiness. 5) Use heat to the neck as needed., 6) Proceed with PT as ordered. They should be gentle with your anterior chest wall due to your sternum fracture. 7) Followup with Dr. Albert in 2 weeks or so. 8) No change to routine meds otherwise. 9) Wear the soft cervical neck collar as needed, so as to reduce pain med requirements.. Orders Orders (Selected) Outpatient Orders Ordered Cervical, flexible, non-adjustable (foam collar) L0120: Office Visit Level 5 Est 09118: Ordered (Exam Completed) XR Mandible Complete Minimum 4 Views: Prescriptions Prescribed cyclobenzaprine 10 mg oral tablet: 10 mg=1 tabs, Oral, q8hr, for 10 days, PRN: as needed for spasm, 30 tabs, 1 Refill(s) meloxicam 15 mg oral tablet: 15 mg=1 tabs, Oral, Daily, 30 tabs, 3 Refill(s). Dx/Order Association Plan: Diagnosis: Contusion of jaw Comment: Ordered: Office Visit Level 5 Est 84573; 02/01/16 12:41:00 CDT, Fracture of sternum | Head contusion | Contusion of jaw | Neck pain on left side | Temporomandibular joint (TMJ) pain Other status: XR Mandible Complete Minimum 4 Views; 02/01/16 11:29 :00 CDT, Routine, Stop date 02/01/16 11:29:00 CDT, Reason: Injury, face & neck, Contusion of jaw | Temporomandibular joint (TMJ) pain, ABN Status: Not Required (Status Change) Diagnosis: Fracture of sternum Comment: Ordered: Office Visit Level 5 Est 59150; 02/01/16 12:41:00 CDT, Fracture of sternum | Head contusion | Contusion of jaw | Neck pain on left side | Temporomandibular joint (TMJ) pain Diagnosis: Head contusion Comment: Ordered: Office Visit Level 5 Est [id number]; 02/01/16 12:41:00 CDT, Fracture of sternum | Head contusion | Contusion of jaw | Neck pain on left side | Temporomandibular joint (TMJ) pain Diagnosis: Left cervical radiculopathy Comment: Diagnosis: Neck pain on left side Comment: Ordered: Office Visit Level 5 Est 83774; 02/01/16 12:41:00 CDT, Fracture of sternum | Head contusion | Contusion of jaw | Neck pain on left side | Temporomandibular joint (TMJ) pain Diagnosis: Temporomandibular joint (TMJ) pain Comment: Ordered: Office Visit Level 5 Est 49589; 02/01/16 12:41:00 CDT, Fracture of sternum | Head contusion | Contusion of jaw | Neck pain on left side | Temporomandibular joint (TMJ) pain Other status: XR Mandible Complete Minimum 4 Views; 02/01/16 11:29 :00 CDT, Routine, Stop date 02/01/16 11:29:00 CDT, Reason: Injury, face & neck, Contusion of jaw | Temporomandibular joint (TMJ) pain, ABN Status: Not Required (Status Change) Additional Orders: Comment: Ordered: cyclobenzaprine 10 mg oral tablet,10 mg 1 tabs, Oral, q8hr , as needed for spasm, X 10 days, # 30 tabs, 1 Refill(s), Indication: as needed for neck pain, Pharmacy: [facility] [id number], 1 tabs Oral q8hr,x10 days, PRN:as needed for spasm Discontinued: ibuprofen,200 mg, Oral, q4hr, as needed for pain, 0 Refill(s) Ordered: meloxicam 15 mg oral tablet,15 mg 1 tabs, Oral, Daily, # 30 tabs, 3 Refill(s), Pharmacy: [facility] [id number], 1 tabs Oral Daily End of Orders .
--- OUTSIDE RECORDS SUMMARY | 2016-11-08 11:19 | XMS REPORT | Referral Summary ---
Author Author [facility], [facility] Organization [facility] Address Unknown Phone Unavailable Care Team Providers Care Waiter/Waitress Cocktail Lounge Name Role Phone Doris Albert Primary Care Physician [phone] Encounter VC Date(s): 09/04/16 - 09/04/16 [facility], [address] [place] [address]- Discharge Disposition: 01-Home or Self Care Attending Physician: Sixto Albert MD Admitting Physician: Sixto Albert MD Vital Signs Most recent to 1 oldest [Reference Range]: Blood Pressure 108/72 mmHg [90-140/60-90 mmHg] (09/04/16 9:38 AM) Problem List Condition Effective Dates Status [...] DAILY, # 60 tabs, 6 Refill(s), Pharmacy: [id number], TAKE ONE TABLET BY MOUTH DAILY Start Date: 02/15/16 Status: Ordered clindamycin 300 mg oral capsule See Instructions, TAKE 2 CAPSULES BY MOUTH 1 HOUR PRIOR TO DENTAL WORK., # 2 caps, 1 Refill(s), eRx: [facility] #[id number], TAKE 2 CAPSULES BY MOUTH 1 HOUR PRIOR TO DENTAL WORK. Start Date: 05/25/15 Status: Ordered Probiotic Formula caps, Oral, Daily, 0 Refill(s) Start Date: 02/15/16 Status: Ordered PT to eval and treat PT to eval and treat, See Instructions, PT to eval and treat for TMJ, Neck pain , lumbar pain, and knee pain. DX: M26.62, M54.2, M54.5, M25.569 Fax to [facility], # 1 Each, 0 Refill(s) Start Date: 09/04/16 Status: Ordered Voltaren 1% topical gel 1 chang, Topical, QID, # 100 g, 0 Refill(s), Pharmacy: [facility] [id number] Start Date: 07/10/16 Status: Ordered Results Chemistry Most recent to 1 oldest [Reference Range]: Sodium Lvl [135-144 142 mEq/L mEq/L] (09/04/16 10:17 AM) Potassium Lvl 4.1 mEq/L [3.5-5.2 mEq/L] (09/04/16 10:17 AM) Chloride [99-111 107 mEq/L mEq/L] (09/04/16 10:17 AM) CO2 [22-31 mEq/L] 27 mEq/L (09/04/16 10:17 AM) AGAP [3-20] 8 (09/04/16 10:17 AM) BUN [10-20 mg/dL] 22 mg/dL *HI* (09/04/16 10:17 AM) Glucose Lvl [70-99 85 mg/dL mg/dL] (09/04/16 10:17 AM) Creatinine Lvl 0.73 mg/dL [0.57-1.11 mg/dL] (09/04/16 10:17 AM) eGFR [>60 mL/min] >60 mL/min 1 (09/04/16 10:17 AM) Calcium Lvl 9.2 mg/dL [8.9-10.5 mg/dL] (09/04/16 10:17 AM) 1Result Comment: Multiply eGFR results by 1.21 for race. Immunizations Given and Recorded Vaccine Date Status Refusal Reason tetanus/diphth/pertuss (Tdap) adult/adol 08/14/10 Recorded influenza virus vaccine, inactivated1 06/21/16 Recorded influenza virus vaccine, inactivated 06/02/15 Recorded influenza virus vaccine, inactivated 06/21/14 Recorded influenza virus vaccine, inactivated 07/30/13 Recorded influenza virus vaccine, live 07/02/12 Given pneumococcal 13-valent conjugate vaccine 02/27/15 Given pneumococcal 23-polyvalent vaccine 04/17/16 Given pneumococcal 23-polyvalent vaccine 02/09/09 Recorded zoster vaccine live 02/27/15 Given 1Location History: [facility]. Procedures Procedure Date Related Diagnosis Body Site Collection of venous blood by venipuncture 09/04/16 Excision of nail partial phenol & alcohol 02/03/12 lateral borde Removal of lesion Lt foot Destruct benign 12/27/11 Cataract extraction RT 2004 MANOHAR BSO - Total abdominal hysterectomy and 1996 bilateral salpingo-oophorectomy Social History Social History Type Response Smoking Status Never smoker Assessment and Plan Extracted from: Title: Ambulatory Patient Education Author: Sixto Albert MD Date: 09/04 No follow up information was provided.
--- OUTSIDE RECORDS SUMMARY | 2016-11-08 11:19 | XMS REPORT | Referral Summary ---
Author Author [facility], Family Medicine Organization [facility] Address Unknown Phone Unavailable Care Team Providers Care Environmental Analyst Name Role Phone Doris Albert Primary Care Physician [phone] Encounter VC Date(s): 02/15/16 - 02/15/16 [facility], [address] [place] [address]- Discharge Disposition: 01-Home or Self Care Attending Physician: Sixto Albert MD Admitting Physician: Sixto Albert MD Vital Signs Most recent to 1 oldest [Reference Range]: Blood Pressure 108/68 mmHg [90-140/60-90 mmHg] (02/15/16 11:26 AM) Problem List Condition Effective Dates Status [...] DAILY, # 60 tabs, 6 Refill(s), [id number], TAKE ONE TABLET BY MOUTH DAILY Start Date: 02/15/16 Status: Ordered clindamycin 300 mg oral capsule See Instructions, TAKE 2 CAPSULES BY MOUTH 1 HOUR PRIOR TO DENTAL WORK., # 2 caps, 1 Refill(s), eRx: [facility] #[id number], TAKE 2 CAPSULES BY MOUTH 1 HOUR [...]
--- OUTSIDE RECORDS SUMMARY | 2016-11-08 11:19 | XMS REPORT | Referral Summary ---
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 Start Date: 05/25/15 Status: Ordered PriLOSEC 20 mg oral delayed release capsule 20 mg 1 caps, Oral, Daily, # 90 caps, 3 Refill(s), Pharmacy: [facility] # [id number], 1 caps Oral Daily Start Date: 01/16/15 [...] Patient Education Author: Sixto Albert MD Date: No follow up information was provided. Extracted from: Title: Office Visit Note Author: Sixto Albert MD Date: 02/23/15 Assessment/Plan Job syndrome Patient to take time off work and FMLA paper work completed. Ordered: Office Visit Level 3 Est [id number]
[2016-11-08 11:47] VITALS: Ht 172.7 cm; Wt 82.1 kg
[2016-11-08 11:48] VITALS: BP 116/72; PULSE 81; RESP 16; TEMP 98.1; O2SAT 97
[2016-11-08] MEDS ORDERED: LACT1CAP73 PO (12:05)
[2016-11-08] MEDS ORDERED: BUPIVACAINE 0.25%/EPI 1:200,000 30ml SDV ONE (13:11)
--- NOTE | 2016-11-08 13:38 | ANESPREOP ---
Anesthesia Record Date and Time DATE: 11/08/16 TIME: 13:36 Pre-Op Diagnosis lesions on face abd. crcs Proposed Surgical Procedure COLONOSOCPY, SKIN LESION REMOVAL RT. FOREHEAD, RT. CHEEK, REMOVAL ABD. MASS Allergies: Coded Allergies: Penicillins (Verified Allergy, Unknown, rash, 11/08/16) Sulfa (Sulfonamide Antibiotics) (Verified Allergy, Unknown, 11/08/16) Ht/Wt/BMI Height: 5 ' 8.00 " Weight: 82.100 kg BMI: 27.5 kg/m2 Vital Signs Date Time Temp Pulse Resp B/P Pulse Ox O2 Delivery O2 Flow Rate FiO2 11/08/16 11:48 98.1 81 16 116/72 97 Room Air Medications Inpatient Medications Current Medications Medications (Trade) Dose Ordered Sig/Jorge Start Time Stop Time Status Last Admin Dose Admin Lactated Ringer's (Lactated Ringers) 1,000 ml @ 30 mls/hr Q24H 11/08/16 07:00 11/08/16 12:16 30 MLS/HR Citalopram Hydrobromide (Celexa) 20 Mg Tablet, 1 TAB PO DAILY, (Reported) Last Taken: on 11/07/16 0800 Lactobacillus Combination No.4 (Probiotic) 1 Each Capsule, PO, (Reported) Last Taken: on 11/07/16 08 Magnesium Oxide (Magnesium) 400 Mg Capsule, 1 CAP PO DAILY, (Reported) Last Taken: on 11/07/16 0800 Currently on Beta Mik: No Medical/Surgical History Anesthesia PMH: Reports: Arthritis, Asthma, Obesity, Pneumonia (HX), Denies: * Diabetes, *Hypertension, *MN, Anesthesia Reactions (NO AIRWAY ISSUES/HARD TO WAKE UP), CHF, COPD, CVA/Stroke/TIA, Cancer, Clotting Problems, Glaucoma, Malignant Hyperthermia, Reflux, Renal Disease, Seizures, Sleep Apnea Smoking Status: Never smoker Has pt. smoked today?: No Use Chewing Tobacco?: No Second Hand Exposure: No Substance Use Type: does not use Substance last used: unknown Alcohol Intake: none Last Drink: unknown HX of Last Menstrual Period: HYST. FULL Past Surgical History Orthopedic Surgeries: Abdominal Surgeries: Genitourinary Surgeries: Cardiac Surgeries: Endocrine Surgeries: Reproductive Surgeries: Yes - HYST,EXPLORATORY LAP Neurological Surgeries: Ear Surgeries: Nose Surgeries: Throat Surgeries: Other Surgeries: Yes - SENIA. CATARACT Anesthesia Adverse Reactions: FOUND nausea and vomiting Family Hx of Anesthesia Advers: none Hx of Motion Sickness: No Pertinent Findings EKG Rhythm: Sinus Rhythm Physical Exam Respiratory: Bilat breath sounds equal, Lungs clear Cardiovascular: FOUND Regular rate, rhythm, FOUND No murmur Airway Assessment Mallampati Score: II TMD: 3 Fingerbreadths Neck Extension: Good Overall Assessment: No Airway Concerns ASA: 2 Plan Anesthesia Plan: MAC Discussion Discussed risks/options/alternatives of anesthesia and questions answered. Patient consents. Nursing pain assessment noted. Attestation Statement Prior to the delivery of any anesthetic medication, I examined the patient, developed the plan, obtained the patient's consent and discussed the risk and benefits of the procedure with the patient/guardian. BEBA FERRELL CRNA Nov 08, 2016 13:38
[2016-11-08] MEDS ORDERED: FENTANYL 250mcg/5ml INJECTION ONE (14:14)
[2016-11-08] MEDS ORDERED: MIDAZOLAM 5mg/5ml INJECTION ONE (14:15)
[2016-11-08] MEDS ORDERED: HYDR-4246 PO (14:29)
[2016-11-08] MEDS ORDERED: ONDANSETRON 4mg/2ml INJECTION ONE (14:30)
[2016-11-08 15:05] VITALS: BP 117/56; PULSE 83; RESP 20; TEMP 97.9; O2SAT 99
--- NOTE | 2016-11-08 15:16 | ANESPO ---
Post-Op Note Date 11/08/16 Time: 15:14 Status Pt Participated in Evaluation: Pt participated in person Vital Signs Date Time Temp Pulse Resp B/P Pulse Ox O2 Delivery O2 Flow Rate FiO2 11/08/16 11:48 98.1 81 16 116/72 97 Room Air Respiratory Function: Airway patent, Regular respirations Cardiovascular Function: Regular pulse Mental Status: Alert/oriented Pain Level Intensity: 0 Hydration: Taking po fluids, IV infusing Complications during Recovery None apparentpt. having pain from olsd injurys Post-Anesthesia Notes pt. jose cruz. well Follow-Up Instructions Instructions Per Surgeon Additional Information none BEBA FERRELL CRNA Nov 08, 2016 15:16
[2016-11-08 15:20] VITALS: BP 106/56; PULSE 65; RESP 16; O2SAT 96
[2016-11-08 15:30] VITALS: BP 115/64; PULSE 73; RESP 16; O2SAT 97
[2016-11-08 15:45] VITALS: BP 115/64; PULSE 70; RESP 16; O2SAT 97
--- NOTE | 2016-11-09 09:24 | OPNOTEF ---
DATE OF PROCEDURE 11/08/2016 SURGEON Phoenix Brantley MD PREOPERATIVE DIAGNOSIS Suspicious skin lesions involving right cheek, right forehead, subcutaneous mass involving the right anterior abdominal wall, and colorectal cancer surveillance. POSTOPERATIVE DIAGNOSIS Suspicious skin lesions involving right cheek, right forehead, subcutaneous mass involving the right anterior abdominal wall, and colorectal cancer surveillance, normal colonoscopy. PROCEDURE Colonoscopy, excision of a 2.5-cm subcutaneous mass involving the right upper quadrant of anterior abdominal wall, excision of 7- to 8-mm skin lesions involving right cheek and right forehead. ANESTHESIA TIVA/local. BRIEF HISTORY/INDICATIONS Mrs. Chan is a 66-year-old female who recently presented to my office as a result of several different issues. She has had a subcutaneous mass involving the right upper quadrant of her anterior abdominal wall that has slowly been increasing in size and causing her a slight component of some discomfort. She was found to have two suspicious skin lesions upon her face. Lastly, she wished to proceed with a colonoscopy to serve as a portion of her overall colorectal cancer surveillance. For completeness please refer to notes included in the patient's chart. DESCRIPTION OF PROCEDURE After informed consent was obtained, patient was brought to the operative suite and placed on the table in a supine fashion. Right upper quadrant of the anterior abdominal wall was prepped and draped in a sterile fashion as well as the patient's right cheek and right forehead region. Formal time-out was then completed. Then, 0.25% Marcaine with epinephrine was injected overlying the palpable abnormality involving the right upper quadrant of the anterior abdominal wall. A 2-cm incision was then made overlying the area of analgesia. Dissection was then carried down into the deep subcuticular tissues. A well encapsulated, benign-appearing lipoma was identified. This lipoma was about to 2.5 to 3 cm in diameter. Lipoma was excised from the surrounding tissues and submitted for specimen. Hemostasis was obtained within the wound, and the wound was closed in two layers. Deep subcutaneous tissue were reapproximated by placing a few simple interrupted sutures of 3-0 Vicryl. The skin itself was then closed in a running fashion with 3-0 Prolene. Attention was then focused to her face. The areas of concern had been prepped and draped in a sterile fashion. Both of these skin lesions were injected circumferentially with 0.25% Marcaine with epinephrine. An elliptical incision was then made encompassing both skin lesions. Both skin lesions were excised in their entirety and submitted for pathologic evaluation in separate containers. There did appear to be a small portion of the lesion that persisted along the right cheek region at the edge of the incision. Additional 2 to 3 mm of additional skin was also excised and submitted along the cephalad border. Hemostasis was obtained within both wounds. Both incisions were enclosed in a running fashion with 4-0 Prolene. Sterile dressings were then placed overlying the skin lesions as well as overlying the anterior abdominal wall. Patient was then placed in the left lateral decubitus position. Digital rectal examination was performed. Normal sphincter tone. No rectal masses were appreciated. An Olympus colonoscope was inserted in the anus and advanced to the lumen of the colon under direct visualization at all times until the cecum was ascertained. Triangulation of the tenia coli, ileocecal valve, and appendiceal lumen were all visualized. Scope was then slowly withdrawn again maintaining visualization of the lumen at all times. The entire colon was without evidence for angiodysplastic lesions, polyps, diverticulum, or pearl malignancies. Once the colonoscope was withdrawn back to the rectal vault, a J maneuver was performed. No worrisome perianal pathology was noted. Scope was allowed to straighten and withdrawn through the anal verge. Patient tolerated the procedure without difficulty and was sent back to the preoperative area in stable condition. AYALA
== END 2016-11-08 16:08 | disposition home or self-care (01) ==
LOC: SCU 11:15
PROVIDERS: ATTEND Surgery
DX: Z12.11 Encounter for screening for malignant neoplasm of colon (principal); D17.1 Benign lipomatous neoplasm of skin and subcutaneous tissue of trunk; L82.1 Other seborrheic keratosis; D23.39 Other benign neoplasm of skin of other parts of face
CPT/HCPCS: 11403; 11441; 12031; 45378; J2250; J2405; J3010; J7120; S0020